=== PATIENT | male | born 1970 ===

== ENCOUNTER 2020-09-26 14:42 | Emergency (ER) | payer SELFPAY ==
[2020-09-26 16:20] VITALS: BP 153/80
--- NOTE | 2020-09-26 16:34 | Emergency Department Report ---
Chief Complaint: Urogenital-Male Stated Complaint: POSS STD - HPI History of Present Illness: 50-year-old -[place] male presents to the emergency room stating he believes he has been exposed to STD. Patient states he has a new partner and found information that she has been taking medication for an STD. Patient denies any testicular swelling denies any testicular pain no dysuria no nausea no vomiting no fever no chills. Patient states he has had noticed some penile discharge in his underwear. - Exam Vital Signs: Vital Signs 09/26/20 16:19 Temperature 98.8 F Pulse Rate 59 L Respiratory 18 Rate Blood Pressure 153/80 [Right] O2 Sat by Pulse 100 Oximetry Physical Exam: General: Awake, appropriately interactive, no acute distress. Neck: Supple. Full range of motion intact. Cardiovascular: Normal peripheral perfusion. Pulmonary: No respiratory distress. Patient is speaking normally without use of accessory muscles. Skin: No apparent rashes or lesions. Neurological: No facial asymmetry. Speech is clear. Follows commands. Patient is alert and oriented. Musculoskeletal: Full range of motion, no crepitus. No tenderness to palpate nonerythematous no edema test appreciated. Able to bear weight and ambulate without difficulty. Distal neurovascular and motor/sensory function is intact. Psych: Cooperative. Appropriate mood and affect. MSE screening note: Focused history and physical exam performed. Due to findings the following was ordered: 50-year-old -[place] male presents to the emergency room stating he believes he has been exposed to STD. Patient states he has a new partner and found information that she has been taking medication for an STD. Patient denies any testicular swelling denies any testicular pain no dysuria no nausea no vomiting no fever no chills. Patient states he has had noticed some penile discharge in his underwear. Recommend to follow-up at the health department or urgent care or primary care provider. ED Disposition for MSE Disposition: MED SCREENING EXAM-LEFT Is pt being admited?: No Does the pt Need Aspirin: No Condition: Stable Instructions: Safe Sex Additional Instructions: Recommend to follow-up at the health department or urgent care or primary care for STD evaluation and treatment. Refrain from intercourse until you have been tested and treated. Referrals: [facility] [Outside] - 3-5 Days [facility] [Outside] - 3-5 Days
== END 2020-09-26 17:00 | disposition left against medical advice (07) ==
LOC: ED 14:42
DX: Z00.8 Encounter for other general examination (principal); Z53.21 Procedure and treatment not carried out due to patient leaving prior to being seen by health care provider

== ENCOUNTER 2020-09-26 18:20 | Emergency (ER) | payer SELFPAY | END 2020-09-26 18:30 | disposition left against medical advice (07) | LOC: ED 18:20 | DX: Z00.8 Encounter for other general examination (principal); Z53.21 Procedure and treatment not carried out due to patient leaving prior to being seen by health care provider ==